=== PATIENT | female | born 1975 | race Hispanic/Latino ===

== ENCOUNTER 2022-06-19 14:52 | Emergency (ER) | payer BC ==
[~2022-06-19] VITALS: Ht 162.6 cm; Wt 60.8 kg
[2022-06-19] MEDS ORDERED: 0.9%NACL 1000ML 1,000 ML IV ONE (15:30)
[2022-06-19] MEDS ORDERED: FAMOTIDINE 20MG VIAL IV ONE (15:30)
[2022-06-19] MEDS ORDERED: ONDANSETRON 4MG INJ IVP ONE (15:30)
[2022-06-19] MEDS ORDERED: MORPHINE 4 MG SYG IVP ONE (15:30)
[2022-06-19 15:40] LABS: BASOPHILS % (AUTO) 0.6 % (0.0-5.0); EOSINOPHILS % (AUTO) 0.8 % (0.0-8.0); HEMATOCRIT 37.2 % (36-48); MEAN CORPUSCULAR HEMOGLOBIN 25.8 pg (27.0-33.0); MEAN CORPUSCULAR HGB CONC 32.8 g/dL (32.0-36.0); MEAN CORPUSCULAR VOLUME 78.8 fL (79-99); MONOCYTES % (AUTO) 11.3 % (3.0-13.0); NEUTROPHILS % (AUTO) 71.1 % (40.0-77.0); PLATELET COUNT (AUTO) 353 K/uL (130-400); RED BLOOD CELL COUNT(AUTO) 4.72 MIL/uL (4.00-5.50); RED CELL DISTRIBUTION WIDTH 13.9 % (11.0-15.5); WHITE BLOOD COUNT (AUTO) 7.8 K/uL (4.8-10.8)
[2022-06-19 15:48] LABS: CREATININE 0.6 mg/dL (0.5-1.5); POTASSIUM 3.7 mmol/L (3.5-5.1)
[2022-06-19 15:53] LABS: ALBUMIN 3.1 g/dL (3.5-5.0); TOTAL PROTEIN, SERUM 7.6 g/dL (6.0-8.3)
[2022-06-19 17:02] LABS: APPEARANCE,URINE CLEAR (CLEAR); BILIRUBIN,URINE NEGATIVE (NEGATIVE); COLOR,URINE COLORLESS (YELLOW); GLUCOSE, URINE (UA) NEGATIVE (NEGATIVE); KETONES,URINE 5 mg/dL (NEGATIVE); LEUKOCYTE ESTERASE ,URINE NEGATIVE Leu/uL (NEGATIVE); NITRATE,URINE NEGATIVE (NEGATIVE); OCCULT BLOOD,URINE NEGATIVE (NEGATIVE); PH,URINE 6.5 (5.0-8.0); PROTEIN,URINE NEGATIVE (NEGATIVE); UROBILINOGEN,URINE 0.2 mg/dL (0.2-1.0)
[2022-06-19 17:27] LABS: WBC,URINE 0-1 /HPF (0-1)
[2022-06-19] MEDS ORDERED: ONDA4TAB10 PO (17:43)
[2022-06-19 17:53] VITALS: BP 138/71
[2022-06-19] MEDS ORDERED: LACT20PA6 PO (18:04)
== END 2022-06-19 18:11 | disposition home or self-care (01) ==
LOC: EDH 14:52
DX: C18.9 Malignant neoplasm of colon, unspecified (principal); C78.00 Secondary malignant neoplasm of unspecified lung; R11.2 Nausea with vomiting, unspecified; E86.0 Dehydration; R10.11 Right upper quadrant pain; R10.12 Left upper quadrant pain; R10.32 Left lower quadrant pain; E11.9 Type 2 diabetes mellitus without complications
CPT/HCPCS: 99284; 74176; 96374; 96375; 96361; 84484; 80053; 83690; 85025; 81001; 36415; 93005; J3490; J7030; J2405; J2270

== ENCOUNTER 2022-07-01 14:07 | Emergency (ER) | payer BC ==
[~2022-07-01] VITALS: Ht 162.6 cm; Wt 58.2 kg
[~2022-07-01 14:07] MED LIST: LACT20PA6 PO; ONDA4TAB10 PO
[2022-07-01 16:08] LABS: BASOPHILS % (AUTO) 0.2 % (0.0-5.0); EOSINOPHILS % (AUTO) 0.1 % (0.0-8.0); HEMATOCRIT 38.3 % (36-48); LYMPHOCYTES % (AUTO) 8.8 % (21.0-51.0); MEAN CORPUSCULAR HEMOGLOBIN 25.3 pg (27.0-33.0); MEAN CORPUSCULAR HGB CONC 32.4 g/dL (32.0-36.0); MEAN CORPUSCULAR VOLUME 78.2 fL (79-99); MONOCYTES % (AUTO) 1.6 % (3.0-13.0); NEUTROPHILS % (AUTO) 88.9 % (40.0-77.0); PLATELET COUNT (AUTO) 400 K/uL (130-400); RED CELL DISTRIBUTION WIDTH 14.6 % (11.0-15.5); WHITE BLOOD COUNT (AUTO) 9.3 K/uL (4.8-10.8)
[2022-07-01 16:20] LABS: CREATININE 0.5 mg/dL (0.5-1.5); POTASSIUM 3.9 mmol/L (3.5-5.1)
[2022-07-01 16:24] LABS: ALBUMIN 2.8 g/dL (3.5-5.0)
[2022-07-01 16:40] LABS: APPEARANCE,URINE CLEAR (CLEAR); BILIRUBIN,URINE NEGATIVE (NEGATIVE); COLOR,URINE LIGHT-YELLOW (YELLOW); GLUCOSE, URINE (UA) NEGATIVE (NEGATIVE); KETONES,URINE 20 mg/dL (NEGATIVE); LEUKOCYTE ESTERASE ,URINE NEGATIVE Leu/uL (NEGATIVE); NITRATE,URINE NEGATIVE (NEGATIVE); OCCULT BLOOD,URINE NEGATIVE (NEGATIVE); PH,URINE 6.5 (5.0-8.0); PROTEIN,URINE 10 mg/dL (NEGATIVE); UROBILINOGEN,URINE 0.2 mg/dL (0.2-1.0)
[2022-07-01 16:48] LABS: MUCUS,URINE RARE LPF (None Seen); RBC,URINE 0-1 /HPF (0-1); SQUAMOUS EPITHELIAL CELL,UR RARE /HPF (0-2)
[2022-07-01] MEDS ORDERED: ONDANSETRON 4MG INJ IVP ONE (18:00)
[2022-07-01] MEDS ORDERED: MORPHINE 2 MG SYG IVP ONE (18:00)
[2022-07-01] MEDS ORDERED: 0.9%NACL 1000ML 1,000 ML IV ONE (18:30)
[2022-07-01] MEDS ORDERED: MAGNESIUM 2GM PREMIX 50ML 50 ML IV SCH (18:30)
[2022-07-01] MEDS ORDERED: IOHEXOL 350 MG/ML 100ML INFUS..BTL IV ONE (19:42)
[2022-07-01 21:11] VITALS: BP 150/90
== END 2022-07-01 21:23 | disposition home or self-care (01) ==
LOC: EDH 14:07
DX: C18.9 Malignant neoplasm of colon, unspecified (principal); E83.42 Hypomagnesemia; R50.9 Fever, unspecified; E11.9 Type 2 diabetes mellitus without complications; Z20.822 Contact with and (suspected) exposure to COVID-19; Z98.890 Other specified postprocedural states
CPT/HCPCS: 99285; 96365; 71270; 93971; 71045; 96375; 87635; 83735; 80053; 85025; 87040 ×2; 87804 ×2; 83605; 81001; 36415; C9803; J3475; J7030; J2405; Q9967

== ENCOUNTER 2022-07-03 14:03 | Emergency (ER) | payer BC ==
[~2022-07-03] VITALS: Ht 162.6 cm; Wt 58.1 kg
[2022-07-03 15:22] LABS: BASOPHILS % (AUTO) 0.5 % (0.0-5.0); EOSINOPHILS % (AUTO) 0.3 % (0.0-8.0); HEMATOCRIT 35.4 % (36-48); LYMPHOCYTES % (AUTO) 12.8 % (21.0-51.0); MEAN CORPUSCULAR HEMOGLOBIN 25.2 pg (27.0-33.0); MEAN CORPUSCULAR HGB CONC 32.8 g/dL (32.0-36.0); MONOCYTES % (AUTO) 3.8 % (3.0-13.0); PLATELET COUNT (AUTO) 354 K/uL (130-400); RED CELL DISTRIBUTION WIDTH 14.5 % (11.0-15.5); WHITE BLOOD COUNT (AUTO) 7.8 K/uL (4.8-10.8)
[2022-07-03 15:31] LABS: CREATININE 0.4 mg/dL (0.5-1.5); POTASSIUM 3.9 mmol/L (3.5-5.1)
[2022-07-03 15:36] LABS: ALBUMIN 2.7 g/dL (3.5-5.0); TOTAL PROTEIN, SERUM 6.9 g/dL (6.0-8.3)
[2022-07-03] MEDS ORDERED: ONDANSETRON 4MG INJ IVP ONE (16:30)
[2022-07-03 17:38] VITALS: BP 155/98
[2022-07-03 17:58] LABS: APPEARANCE,URINE CLEAR (CLEAR); BILIRUBIN,URINE NEGATIVE (NEGATIVE); COLOR,URINE LIGHT-YELLOW (YELLOW); GLUCOSE, URINE (UA) NEGATIVE (NEGATIVE); KETONES,URINE 150 mg/dL (NEGATIVE); LEUKOCYTE ESTERASE ,URINE NEGATIVE Leu/uL (NEGATIVE); NITRATE,URINE NEGATIVE (NEGATIVE); OCCULT BLOOD,URINE NEGATIVE (NEGATIVE); PH,URINE 6.5 (5.0-8.0); PROTEIN,URINE 20 mg/dL (NEGATIVE)
[2022-07-03] MEDS ORDERED: DiphenhydrAMINE HCL 50 MG/ML VIAL IV ONE (18:00)
[2022-07-03] MEDS ORDERED: MAGNESIUM 2GM PREMIX 50ML 25 ML IV SCH (18:00)
[2022-07-03] MEDS ORDERED: PROCHLORPERAZINE 10MG/2ML INJ IV ONE (18:00)
[2022-07-03] MEDS ORDERED: PROCHLORPERAZINE 10MG/2ML INJ ONE (18:01)
[2022-07-03 18:02] LABS: MUCUS,URINE RARE LPF (None Seen); RBC,URINE 0-1 /HPF (0-1); SQUAMOUS EPITHELIAL CELL,UR RARE /HPF (0-2)
[2022-07-03] MEDS ORDERED: ONDA22I IM (19:01)
== END 2022-07-03 19:05 | disposition home or self-care (01) ==
LOC: EDH 14:03
DX: R11.2 Nausea with vomiting, unspecified (principal); C79.9 Secondary malignant neoplasm of unspecified site; E11.9 Type 2 diabetes mellitus without complications
CPT/HCPCS: 99284; 96374; 96375; 80053; 85025; 81001; 36415; J1200; J0780; J2405

== ENCOUNTER 2022-07-20 21:45 | Emergency (ER) | payer BC ==
[~2022-07-20] VITALS: Ht 162.6 cm; Wt 53.5 kg
[~2022-07-20 21:45] MED LIST changes: +ONDA22I IM
[2022-07-20] MEDS ORDERED: MORPHINE 4 MG SYG IVP ONE (22:30)
[2022-07-20] MEDS ORDERED: ONDANSETRON 4MG INJ IVP ONE ×2 (22:30→23:30)
[2022-07-20] MEDS ORDERED: MORPHINE 4 MG SYG ONE (22:31)
[2022-07-20] MEDS ORDERED: ONDANSETRON 4MG INJ ONE ×2 (22:31→23:11)
[2022-07-20] MEDS ORDERED: HYDRALAZINE 20MG/ML VIAL ONE (23:11)
[2022-07-20] MEDS ORDERED: HYDRALAZINE 20MG/ML VIAL IV ONE (23:30)
[2022-07-21 00:28] LABS: BASOPHILS % (AUTO) 0.3 % (0.0-5.0); HEMATOCRIT 39.6 % (36-48); LYMPHOCYTES % (AUTO) 7.6 % (21.0-51.0); MEAN CORPUSCULAR HEMOGLOBIN 25.7 pg (27.0-33.0); MEAN CORPUSCULAR HGB CONC 32.6 g/dL (32.0-36.0); MEAN CORPUSCULAR VOLUME 78.9 fL (79-99); MONOCYTES % (AUTO) 11.1 % (3.0-13.0); NEUTROPHILS % (AUTO) 79.7 % (40.0-77.0); PLATELET COUNT (AUTO) 668 K/uL (130-400); RED BLOOD CELL COUNT(AUTO) 5.02 MIL/uL (4.00-5.50); RED CELL DISTRIBUTION WIDTH 17.4 % (11.0-15.5); WHITE BLOOD COUNT (AUTO) 7.8 K/uL (4.8-10.8)
[2022-07-21 00:38] LABS: APPEARANCE,URINE CLEAR (CLEAR); BILIRUBIN,URINE NEGATIVE (NEGATIVE); COLOR,URINE LIGHT-YELLOW (YELLOW); GLUCOSE, URINE (UA) >=1000 mg/dL (NEGATIVE); KETONES,URINE 10 mg/dL (NEGATIVE); LEUKOCYTE ESTERASE ,URINE NEGATIVE Leu/uL (NEGATIVE); NITRATE,URINE NEGATIVE (NEGATIVE); OCCULT BLOOD,URINE NEGATIVE (NEGATIVE); PH,URINE 6.5 (5.0-8.0); PROTEIN,URINE 10 mg/dL (NEGATIVE); UROBILINOGEN,URINE 0.2 mg/dL (0.2-1.0)
[2022-07-21 00:39] LABS: ALBUMIN 3.3 g/dL (3.5-5.0); CREATININE 0.4 mg/dL (0.5-1.5); POTASSIUM 4.6 mmol/L (3.5-5.1); TOTAL PROTEIN, SERUM 7.1 g/dL (6.0-8.3)
[2022-07-21 00:42] LABS: MUCUS,URINE RARE LPF (None Seen); WBC,URINE 0-1 /HPF (0-1)
[2022-07-21] MEDS ORDERED: HYDRALAZINE 20MG/ML VIAL IV ONE (01:30)
[2022-07-21] MEDS ORDERED: MORPHINE 4 MG SYG ONE (01:30)
[2022-07-21] MEDS ORDERED: MORPHINE 4 MG SYG IVP ONE (01:30)
[2022-07-21] MEDS ORDERED: CLONIDINE HCL 0.1 MG TABLET ONE (02:22)
[2022-07-21 02:28] VITALS: BP 157/91
[2022-07-21] MEDS ORDERED: CLON1PAT13 TD (02:30)
[2022-07-21] MEDS ORDERED: CLONIDINE HCL 0.1 MG TABLET PO ONE (02:30)
== END 2022-07-21 02:49 | disposition home or self-care (01) ==
LOC: EDH 21:45
DX: I10 Essential (primary) hypertension (principal); C22.9 Malignant neoplasm of liver, not specified as primary or secondary; E11.9 Type 2 diabetes mellitus without complications; Z79.899 Other long term (current) drug therapy; Z98.890 Other specified postprocedural states
CPT/HCPCS: 99284; 96374; 70450; 96375; 80053; 85025; 81001; 36415; 96376 ×2; J0360; J2405 ×2; J2270 ×2